=== PATIENT | female | born 1975 | race Caucasian/White ===

== ENCOUNTER 2021-01-10 09:13 | Outpatient (CLI) | payer OTHER ==
--- NOTE | 2021-01-24 08:36 | Mammography Report ---
BILATERAL DIGITAL SCREENING MAMMOGRAM 3D/2D: 01/10/2021 CLINICAL: Family history of breast cancer. Routine screening. Comparison is made to exams dated: 09/04/2016 mammogram, 04/12/2013 mammogram, and 04/29/2011 mammogram - [facility]. The tissue of both breasts is heterogeneously dense. This may lower the sens itivity of mammography. No significant masses, calcifications, or other findings are seen in either breast. There has been no significant interval change. IMPRESSION: NEGATIVE There is no mammographic evidence of malignancy. A 1 year screening mammogram is recommended. This exam was interpreted at Station ID: [id number]. NOTE: For mammograms, a report in lay terms will be sent to the patient. Approximately 15% of breast malignancies will not be visualized mammographically. In the management of a palpable breast mass, a negative mammogram must not discourage biopsy of a clinically suspicious lesion. Electronically Signed By: Bruce Barreto M.D. [email or web address]/[email or web address]:01/23/2021 08:19:49 ACR BI-RADS Category 1: Negative 3341F PARENCHYMAL PATTERN: (D) - The breast(s) demonstrate(s) heterogeneously dense fibroglandular juve denise. BI-RADS CATEGORY: (1) - 1 RECOMMENDATION: (ANNUAL) - Recommend routine annual screening mammography. [id number] 1 year screening LATERALITY: (B)
== END 2021-01-10 09:14 | disposition home or self-care (01) ==
LOC: DI.N 09:13
DX: Z12.31 Encounter for screening mammogram for malignant neoplasm of breast (principal); Z80.3 Family history of malignant neoplasm of breast